=== PATIENT | female | born 1970 | race Native Hawaiian/Other Pacific Islander ===

== ENCOUNTER 2023-12-15 17:58 | Emergency (ER) | payer BC ==
--- NOTE | 2023-12-15 18:56 | ED ---
General Adult HPI - General Source: patient, family, RN notes reviewed Mode of arrival: ambulatory Limitations: no limitations <Gisselle Murcia - Last Filed: 12/15/23 18:54> <Jessee Cuenca - Last Filed: 12/16/23 03:16> - General Chief complaint: Abdominal Pain Stated complaint: abd pain,gallstones Time Seen by Provider: 12/15/23 18:40 - History of Present Illness Initial comments: Quick note: 53-year-old female presents to the emergency department for evaluation of right upper quadrant pain x 2 weeks. Patient reports that she was seen by her primary care provider for evaluation of her gallbladder. Patient does admit to radiation to her back between her shoulder blades. She admits to nausea without vomiting. (Gisselle Murcia) 53-year-old female presenting with chief complaint of right upper quadrant pain. Patient states she had a sudden onset episode of right upper quadrant pain today. She has had intermittent pain in the past. She was told by her PCP to report to the ER for evaluation of her gallbladder. States that the pain does radiate to her back. Admits to nausea with no vomiting. Pain worse after eating. No fevers. No chest pain or difficulty breathing. (Jessee Cuenca) - Related Data Previous Rx's Medication Instructions Recorded HYDROcodone/APAP 7.5-325MG [[place] 1 tab PO Q6HR PRN 3 Days #12 tab 12/15/23 7.5-325] Ondansetron Odt [Zofran Odt] 4 mg PO Q8HR PRN #20 tab 12/15/23 Cephalexin [Keflex] 500 mg PO Q12HR 7 Days #14 cap 12/16/23 Allergies Allergy/AdvReac Type Severity Reaction Status Date / Time No Known Allergies Allergy Verified 12/15/23 18:34 Review of Systems ROS Other: All systems not noted in ROS Statement are negative. <Gisselle Murcia - Last Filed: 12/15/23 18:54> ROS Other: All systems not noted in ROS Statement are negative. <Jessee Cuenca - Last Filed: 12/16/23 03:16> ROS Statement: Those systems with pertinent positive or pertinent negative responses have been documented in the HPI. Past Medical History Past Medical History: Diabetes Mellitus, Thyroid Disorder Past Surgical History: Section, Hernia Repair, Orthopedic Surgery Additional Past Surgical History / Comment(s): thyroidectomy Past Psychological History: No Psychological Hx Reported Smoking Status: Never smoker Past Alcohol Use History: None Reported Past Drug Use History: None Reported <Gisselle Murcia - Last Filed: 12/15/23 18:54> General Exam Limitations: no limitations <Gisselle Murcia - Last Filed: 12/15/23 18:54> Limitations: no limitations General appearance: alert, in no apparent distress Head exam: Present: atraumatic, normocephalic Eye exam: Present: normal appearance, EOMI Neck exam: Present: normal inspection. Absent: meningismus Respiratory exam: Present: normal lung sounds bilaterally. Absent: respiratory distress, wheezes, rales, rhonchi, stridor Cardiovascular Exam: Present: regular rate, normal rhythm, normal heart sounds. Absent: systolic murmur, diastolic murmur, rubs, gallop, clicks GI/Abdominal exam: Present: soft, tenderness, guarding. Absent: distended, rebound, rigid Neurological exam: Present: alert, oriented X3 Psychiatric exam: Present: normal affect, normal mood Skin exam: Present: normal color <Jessee Cuenca - Last Filed: 12/16/23 03:16> - General Exam Comments Initial Comments: Visual Physical Exam Vital signs reviewed General: Well-appearing, nontoxic, no acute distress. Head: Normocephalic, atraumatic Eyes: PERRLA, EOMI ENT: Airway patent Chest: Nonlabored breathing Skin: No visual rash, normal skin tone Neuro: Alert and oriented 3 Musculoskeletal: No gross abnormalities (Gisselle Murcia) Course Vital Signs 12/15/23 12/15/23 12/15/23 18:30 22:10 23:03 Temperature 98.4 F Pulse Rate 80 66 70 Respiratory 16 18 18 Rate Blood Pressure 163/94 143/85 140/86 O2 Sat by Pulse 98 94 L 96 Oximetry 12/15/23 23:53 Temperature 98.6 F Pulse Rate 68 Respiratory 18 Rate Blood Pressure 148/90 O2 Sat by Pulse 97 Oximetry Medical Decision Making <Gisselle Murcia - Last Filed: 12/15/23 18:54> - Lab Data Result diagrams: 12/15/23 20:14 06/27/24 20:14 <Jessee Cuenca - Last Filed: 12/16/23 03:16> - Medical Decision Making Quick note preformed and electronically signed by Gisselle Murcia PA-C (Gisselle Murcia) Was pt. sent in by a medical professional or institution ([facility], [facility], urgent care, hospital, or shelter...) When possible be specific @ -Sent by PCP Did you speak to anyone other than the patient for history (EMS, parent, family, police, friend...)? What history was obtained from this source @ -No Did you review nursing and triage notes (agree or disagree)? Why? @ -I reviewed and agree with nursing and triage notes Were old charts reviewed (outside hosp., previous admission, EMS record, old EKG, old radiological studies, urgent care reports/EKG's, shelter records)? Report findings @ -No old charts were reviewed Differential Diagnosis (chest pain, altered mental status, abdominal pain women, abdominal pain men, vaginal bleeding, weakness, fever, dyspnea, syncope, headache, dizziness, GI bleed, back pain, seizure, CVA, palpatations, mental health, musculoskeletal)? @ -MDM Differential Abdominal Pain Women: Appendicitis, Cholecystitis, diverticulosis, ischemic bowel, pancreatitis, hepatitis, UTI, gastroenteritis, AAA, incarcerated hernia, bowel obstruction, constipation, inflammatory bowel, hepatitis, peptic ulcer disease, splenic infarction, perforated viscus, vulvitis, ovarian torsion, PID, kidney stone, placenta abruption... This is not meant to be an all-inclusive list EKG interpreted by me (3pts min.). @ -As above X-rays interpreted by me (1pt min.). @ -None done CT interpreted by me (1pt min.). @ -None done U/S interpreted by me (1pt. min.). @ -Ultrasound shows gallstones without secondary ultrasound evidence for acute cholecystitis. Consider HIDA scan follow-up if felt clinically warranted. Heterogenous hyperechoic appearance of liver favors diffuse fatty infiltrative hepatocellular disease. What testing was considered but not performed or refused? (CT, X-rays, U/S, labs)? Why? @ -None What meds were considered but not given or refused? Why? @ -None Did you discuss the management of the patient with other professionals (professionals i.e. , PA, [facility], lab, RT, psych nurse, drug abuse social worker, precision agriculture specialist, teacher, philanthropy officer, employment evaluator/case manager)? Give summary @ -No Was smoking cessation discussed for >3mins.? @ -No Was critical care preformed (if so, how long)? @ -No Were there social determinants of health that impacted care today? How? (Homelessness, low income, unemployed, alcoholism, drug addiction, transpo rtation, low edu. Level, literacy, decrease access to med. care, skilled nursing, rehab)? @ -No Was there de-escalation of care discussed even if they declined (Discuss DNR or withdrawal of care, Hospice)? DNR status @ -No What co-morbidities impacted this encounter? (DM, HTN, Smoking, COPD, CAD, Cancer, CVA, ARF, Chemo, Hep., AIDS, mental health diagnosis, sleep apnea, morbid obesity)? @ -None Was patient admitted / discharged? Hospital course, mention meds given and route, prescriptions, significant lab abnormalities, going to OR and other pertinent info. @ -53-year-old female with right upper quadrant pain. Ultrasound shows gallstones with no evidence of cholecystitis. No leukocytosis. Urine does show small leukocytes with 26 WBCs and positive nitrites. Patient will be treated for UTI with Keflex. She is treated with pain and nausea medication and on reassessment reports improvement in her symptoms. Provided pain and nausea medication for home as well as general surgery follow-up. Discharged home. Follow-up with PCP. Report back to ER with any new or worsening symptoms. Discussed return parameters and answered all questions. Patient conveyed verbal understanding and agreed to the plan. I discussed this case in detail with my attending Dr. Plunkett Undiagnosed new problem with uncertain prognosis? @ -No Drug Therapy requiring intensive monitoring for toxicity (Heparin, Nitro, Insulin, Cardizem)? @ -No Were any procedures done? @ -No Diagnosis/symptom? @ -Gallstones, UTI Acute, or Chronic, or Acute on Chronic? @ -Acute Uncomplicated (without systemic symptoms) or Complicated (systemic symptoms)? @ -Uncomplicated Side effects of treatment? @ -No Exacerbation, Progression, or Severe Exacerbation? @ -No Poses a threat to life or bodily function? How? (Chest pain, USA, IA, pneumonia, PE, COPD, DKA, ARF, appy, cholecystitis, CVA, Diverticulitis, Homicidal, Suic idal, threat to staff... and all critical care pts) @ -Low likelihood (Jessee Cuenca) - Lab Data Lab Results 12/15/23 12/15/23 12/15/23 Range/Units 20:14 20:14 23:07 WBC 7.4 (3.8-10.6) k/uL RBC 4.30 (3.80-5.40) m/uL Hgb 14.6 (11.4-16.0) gm/dL Hct 40.8 (34.0-46.0) % MCV 95.0 (80.0-100.0) fL MCH 33.8 (25.0-35.0) pg MCHC 35.6 (31.0-37.0) g/dL RDW 13.1 (11.5-15.5) % Plt Count 230 (150-450) k/uL MPV 8.1 Neutrophils % 61 % Lymphocytes % 31 % Monocytes % 4 % Eosinophils % 1 % Basophils % 1 % Neutrophils # 4.5 (1.3-7.7) k/uL Lymphocytes # 2.3 (1.0-4.8) k/uL Monocytes # 0.3 (0-1.0) k/uL Eosinophils # 0.1 (0-0.7) k/uL Basophils # 0.1 (0-0.2) k/uL Sodium 136 L (137-145) mmol/L Potassium 4.1 (3.5-5.1) mmol/L Chloride 101 (98-107) mmol/L Carbon Dioxide 30 (22-30) mmol/L Anion Gap 5 mmol/L BUN 11 (7-17) mg/dL Creatinine 0.43 L (0.52-1.04) mg/dL Est GFR (CKD-EPI)AfAm >90 (>60 ml/min/1.73 sqM) Est GFR (CKD-EPI)NonAf >90 (>60 ml/min/1.73 sqM) Glucose 189 H (74-99) mg/dL Calcium 8.9 (8.4-10.2) mg/dL Total Bilirubin 0.4 (0.2-1.3) mg/dL AST 22 (14-36) U/L ALT 19 (4-34) U/L Alkaline Phosphatase 73 (38-126) U/L Total Protein 7.9 (6.3-8.2) g/dL Albumin 4.4 (3.5-5.0) g/dL Amylase 47 (30-110) U/L Lipase 52 (23-300) U/L Urine Color Colorless Urine Appearance Clear (Clear) Urine pH 6.0 (5.0-8.0) Ur Specific [place] 1.019 (1.001-1.035) Urine Protein Trace H (Negative) Urine Glucose (UA) 1+ H (Negative) Urine Ketones Trace H (Negative) Urine Blood Negative (Negative) Urine Nitrite Positive H (Negative) Urine Bilirubin Negative (Negative) Urine Urobilinogen <2.0 (<2.0) mg/dL Ur Leukocyte Esterase Small H (Negative) Urine RBC 2 (0-5) /hpf Urine WBC 26 H (0-5) /hpf Ur Squamous Epith Cells 4 (0-4) /hpf Urine Bacteria Many H (None) /hpf Hyaline Casts 1 (0-2) /lpf Urine Mucus Rare H (None) /hpf Disposition <Gisselle Murcia - Last Filed: 12/15/23 18:54> Is patient prescribed a controlled substance at d/c from ED?: Yes When asked, does pt state using other controlled substances?: No If prescribed controlled substance>3 days was MAPS reviewed?: Prescribed <3 Days If opioid is for acute pain is fill amount 7 days or less?: Yes Time of Disposition: 23:41 <Jessee Cuenca - Last Filed: 12/16/23 03:16> Clinical Impression: Gallstone, UTI (urinary tract infection) Disposition: HOME SELF-CARE Condition: Good Instructions (If sedation given, give patient instructions): Gallstones (ED), Low Fat Diet (ED), Urinary Tract Infection in Women (ED) Additional Instructions: Follow-up with PCP and general surgery. Report back to ER with any new or worsening symptoms. Prescriptions: Cephalexin [Keflex] 500 mg PO Q12HR 7 Days #14 cap HYDROcodone/APAP 7.5-325MG [[place] 7.5-325] 1 tab PO Q6HR PRN 3 Days #12 tab PRN Reason: Pain Ondansetron Odt [Zofran Odt] 4 mg PO Q8HR PRN #20 tab PRN Reason: Nausea Referrals: Timothy Argueta MD [Primary Care Provider] - 1-2 days Dexter Faye MD [Medical Doctor] - 1-2 days
[2023-12-15 20:22] LABS: Basophils # (A) 0.1 k/uL (0-0.2); Basophils % (A) 1 %; Eosinophils # (A) 0.1 k/uL (0-0.7); Eosinophils % (A) 1 %; HCT 40.8 % (34.0-46.0); HGB 14.6 gm/dL (11.4-16.0); Lymphocytes # (A) 2.3 k/uL (1.0-4.8); Lymphocytes % (A) 31 %; MCH 33.8 pg (25.0-35.0); MCHC 35.6 g/dL (31.0-37.0); Mean Platelet Volume 8.1; Monocytes # (A) 0.3 k/uL (0-1.0); Monocytes % (A) 4 %; Neutrophils # (A) 4.5 k/uL (1.3-7.7); Neutrophils % (A) 61 %; Platelet Count 230 k/uL (150-450); RDW 13.1 % (11.5-15.5); WBC 7.4 k/uL (3.8-10.6)
[2023-12-15 20:43] LABS: ALT 19 U/L (4-34); AST 22 U/L (14-36); African American GFR (CKD) >90 (>60 ml/min/1.73 sqM); Albumin 4.4 g/dL (3.5-5.0); Alkaline Phosphatase 73 U/L (38-126); Amylase 47 U/L (30-110); Anion Gap 5 mmol/L; Blood Urea Nitrogen 11 mg/dL (7-17); Calcium 8.9 mg/dL (8.4-10.2); Carbon Dioxide 30 mmol/L (22-30); Chloride 101 mmol/L (98-107); Glucose 189 mg/dL (74-99); Lipase 52 U/L (23-300); Non-African American GFR(CKD) >90 (>60 ml/min/1.73 sqM); Potassium 4.1 mmol/L (3.5-5.1); Sodium 136 mmol/L (137-145); Total Bilirubin 0.4 mg/dL (0.2-1.3); Total Protein 7.9 g/dL (6.3-8.2)
--- NOTE | 2023-12-15 21:08 | US ---
EXAMINATION TYPE: US gallbladder DATE OF EXAM: 12/15/2023 COMPARISON: NONE CLINICAL INDICATION: Female, 53 years old with history of RUQ pain; Patient states RUQ pain and known gallstones TECHNIQUE: Multiple sonographic images of the right upper quadrant are obtained. FINDINGS: EXAM MEASUREMENTS: Liver Length: 22.0cm Gallbladder Wall: 0.3cm CBD: 0.4cm Right Kidney: 10.2 x 4.6 x 6.0cm SHERIFFS NOTES:Limited due to overlying gas Pancreas: Portions visualized appear WNL. Tail obscured by gas Liver: Hepatomegaly. Increased echogenicity. Gallbladder: 1.4cm echogenic foci seen. Prominent (measures 10.2cm in length). Wall is upper limits of normal. Evidence for sonographic Hartman's sign: No CBD: wnl as best seen Right Kidney: No hydronephrosis or masses seen as best visualized today Visualized pancreas is unremarkable. Visualized liver is heterogeneously hyperechoic and enlarged in size. Evaluation for focal masses suboptimal due to the heterogeneity. No ascites. Single mobile shad owing gallstone. No abnormal gallbladder wall thickening or adjacent fluid. No right-sided hydronephr osis. IMPRESSION: Gallstone without secondary ultrasound evidence for acute cholecystitis. Consider HIDA sc an follow-up is felt clinically warranted. Heterogeneous hyperechoic appearance of liver favors diffu se fatty infiltrative hepatocellular disease.
[2023-12-15] MEDS: MORPHINE SULFATE 4 MG/ML SYRINGE IVP STA (21:53)
[2023-12-15] MEDS: ONDANSETRON 4 MG/2 ML VIAL IVP STA (21:54)
[2023-12-15 22:12] VITALS: RESP 18
[2023-12-15 23:39] LABS: Appearance,Urine Clear (Clear); Bacteria,Urine Many /hpf; Bilirubin,Urine Negative (Negative); Blood,Urine Negative (Negative); Color,Urine Colorless; Glucose,Urine (UA) 1+ (Negative); Hyaline Casts,Urine 1 /lpf (0-2); Ketones,Urine Trace (Negative); Leukocyte Esterase,Urine Small (Negative); Mucus,Urine Rare /hpf; Nitrite,Urine Positive (Negative); Protein,Urine Trace (Negative); RBC,Urine 2 /hpf (0-5); Specific Gravity,Urine 1.019 (1.001-1.035); Squamous Epithelial Cell,Urine 4 /hpf (0-4); Urobilinogen,Urine <2.0 mg/dL (<2.0); WBC,Urine 26 /hpf (0-5)
[2023-12-15 23:54] VITALS: BP 148/90; PULSE 68; TEMP 98.6
== END 2023-12-15 23:55 | disposition home or self-care (01) ==
LOC: EC 17:58
DX: N39.0 Urinary tract infection, site not specified (principal); K80.20 Calculus of gallbladder without cholecystitis without obstruction
CPT/HCPCS: 36415; 80053; 82150; 83690; 85025; 81001; 76705; 99284; 96374; 96375; J2270; J2405